=== PATIENT | female | born 1985 | race Two or more races ===

== ENCOUNTER 2016-08-24 19:15 | Inpatient (IN) | payer OTHER ==
[2016-08-24] MEDS ORDERED: DEXTROSE 5%-LACTATED RINGERS 1,000 ML IV SCH ×3 (20:00→22:15)
[2016-08-24 21:30] VITALS: BMI 25.4
[2016-08-24 21:41] LABS: BASOPHIL 0.3 % (0-2.0); EOSINOPHIL 0.4 % (0-4.5); MCH 30.8 pg (25.7-33.7); MCHC 33.1 g/dl (32.0-36.0); MEAN CELL VOLUME 92.9 fl (80-96); MEAN PLT VOLUME 8.9 fl (7.5-11.1); NEUTROPHILS 72.7 % (42.8-82.8); PLATELET COUNT 218 K/MM3 (134-434); RDW 13.9 % (11.6-15.6); WHITE BLOOD COUNT 9.6 K/mm3 (4.0-10.0)
[2016-08-24 21:55] LABS: INR 0.91 (0.82-1.09)
[2016-08-24 21:57] LABS: ACTIVATED PTT 31.4 SECONDS (26.9-34.4)
[2016-08-24 21:59] LABS: CALCIUM 8.5 mg/dL (8.5-10.1); COCKROFT - GAULT 129.9395; CREATININE 0.6 mg/dL (0.55-1.02)
[2016-08-24] MEDS ORDERED: DINOPROSTONE 10 MG VAGINAL SUPPOSITORY VG ONE (22:04)
[2016-08-24] MEDS ORDERED: PROMETHAZINE HCL 25 MG/1 ML VIAL IVPUSH ONE (22:04)
[2016-08-24] MEDS ORDERED: BUTORPHANOL TARTRATE 1 MG/ML VIAL IVPB ONE (22:04)
--- NOTE | 2016-08-24 22:04 | HP ---
Admitting History and Physical - Admission Chief Complaint: srom History of Present Illness: 30 y/o at 39.4 weeks comes with complaints of srom, denies ctx. She is a pt of [facility]. Blood typr o pos, rubella pos, hbsag neg, neg, hiv neg. Cxr neg History Source: Patient - Past Medical History [employer]: No: Alzheimer's, CVA, Dementia, Migraine, Multiple Sclerosis, Peripheral Neuropathy, Parkinson's, Seizure, Syncope, TIA, Vertigo, Other Cardiovascular: No: AFIB, Aneurysm, Aortic Insufficiency, Aortic Stenosis, CAD, CHF, Deep Vein Thrombosis, HTN, Hyperlipdemia, MT, Mitral Insufficiency, Mitral Stenosis, Murmur, Pulmonary Hypertension, Other Pulmonary: No: Asthma, Bronchitis, Cancer, COPD, O2 Dependent, Pneumonia, Previously Intubated, Pulmonary Embolus, Pulmonary Fibrosis, Sleep Apnea, Other Gastrointestinal: Yes: Gastritis. No: Ascites, Cancer, Constipation, Crohn's Disease, Diverticulitis, Diverticulosis, Esophageal Varices, GERD, GI Bleed, Hemorrhoids, Hiatal Hernia, Inflamatory Bowel Disease, Irritable Bowel Disease, Pancreatitis, Peptic Ulcer Disease, Ulcerative Colitis, Other Hepatobiliary: No: Cirrhosis, Cholelithiasis, Cholecystitis, Choledocholithiasis , Hepatitis A, Hepatitis B, Hepatitis C, Other Renal/: No: Renal Failure, Renal Inusuff, BPH, Cancer, Hematuria, Hemodialysis , Neurogenic Bladder, Renal Calculi, UTI, Other Reproductive: No: Ectopic , Endometriosis, Fibroids, PID, Polycystic Ovary Syndrome, Postmenopausal, Other ...: 2 ...Para: 1 Heme/Onc: No: Anemia, B12 Deficiency, Bleeding Disorder, Cancer, Current Chemotherapy, Current Radiation Therapy, Hemochromatosis, Hypercoaguable State, Myeloproliferative Synd, Sickle Cell Disease, Sickle Cell Trait, Thrombocytopenia, Other Infectious Disease: No: AIDS, C-Diff, Herpes Zoster, HIV, MRSA, STD's, Tuberculosis, VREF, Other Psych: No: Addictions, Anxiety, Bipolar, Depression, Panic, Psychosis, Schizophrenia, Other Musculoskeletal: No: Bursitis, Chronic low back pain, Hemiparesis, Hemiplegia, Osteoarthritis, Paraplegia, Other Rheumatology: No: Fibromyalgia, Gout, Lupus, Rheumatoid Arthritis, Sarcoidosis, Vasculitis, Other Endocrine: No: Pitt's Disease, Cora's Disease, Diabetes Insipidus, Diabetes Mellitus, Hyperparathyroidism, Hyperthyroidism, Hypothyroidism, Osteopenia, SIADH, Other Dermatology: No: Basal Cell, Cellulitis, Eczema, Melanoma, Psoriasis, Squamous Cell, Other - Past Surgical History Past Surgical History: No: None, AAA Repair, AICD, Amputation, Appendectomy, Arthrosocopy, AV Fistula/Graft, Bariatric Surgery, Breast Biopsy, Bypass, CABG, Carotid Endarterectomy, Cataract Removal, Cholecystectomy, Colectomy, Colonoscopy, Colostomy, Craniotomy, , Cystectomy, Hernia Repair, Hysterectomy, Ileal Conduit, Ileosotomy, Joint Replacement, Kidney Transplant, Laminectomy, Liver Transplant, Mastectomy, Nephrectomy, Oopherectomy, Orchiectomy, Permanent Pacemaker, Prostatectomy, Splenectomy, Stent, Thoracotomy , TURP, Tonsillectomy, Tubal Ligation, Upper Endoscopy, Valve Replacement, Vasectomy, Vein Stripping/Ligation - Advance Directives Advance Directives: No: Living Will, Health Care Proxy, DNR, Organ Donor, Tissue Donor, MOLST - Smoking History Smoking history: Never smoked Have you smoked in the past 12 months: No - Alcohol/Substance Use Hx Alcohol Use: No History of Substance Use: denies: None, Cocaine, Heroin, Marijuana, Prescription , Tranquilizers - Social History Usual Living Arrangement: No: Alone, With Spouse, With Parent, With Significant Other, With Child, Assisted Living, Custodial, Other History of Recent Travel: No Home Medications - Allergies Allergies/Adverse Reactions: Allergies Allergy/AdvReac Type Severity Reaction Status Date / Time No Known Allergies Allergy Verified 05/30/14 06:46 - Home Medications Home Medications: Ambulatory Orders Vitamins (Sjr) - 1 tab PO DAILY 05/30/14 Ibuprofen [Motrin -] 800 mg PO TID #90 tablet 05/31/14 Review of Systems - Review of Systems Constitutional: reports: No Symptoms Eyes: reports: No Symptoms HENT: reports: No Symptoms Neck: reports: No Symptoms Cardiovascular: reports: No Symptoms Respiratory: reports: No Symptoms Gastrointestinal: reports: No Symptoms Genitourinary: reports: No Symptoms Breasts: reports: No Symptoms Reported Musculoskeletal: reports: No Symptoms Integumentary: reports: No Symptoms Neurological: reports: No Symptoms Endocrine: reports: No Symptoms Hematology/Lymphatic: reports: No Symptoms Physical Examination Vital Signs: Vital Signs Temperature 98.1 F 08/24/16 21:45 Pulse Rate 70 08/24/16 21:45 Respiratory Rate 20 08/24/16 21:45 Blood Pressure 123/74 08/24/16 21:45 O2 Sat by Pulse Oximetry (%) Constitutional: Yes: Well Nourished Eyes: Yes: WNL HENT: Yes: WNL Neck: Yes: WNL Cardiovascular: Yes: WNL Respiratory: Yes: WNL Gastrointestinal: Yes: WNL Breast(s): Yes: WNL Musculoskeletal: Yes: WNL Extremities: Yes: WNL Neurological: Yes: WNL ...Motor Strength: WNL Psychiatric: Yes: WNL (exam FT long, post) Labs: CBC, BMP 08/24/16 21:15 08/24/16 21:15 Assessment/Plan as above cervidil admit labs pain meds prn
--- NOTE | 2016-08-24 22:11 | PN ---
Progress Note (short form) - Note Progress Note: cervidil at 1010pm post fornix cat 1 tracing 150 react
[2016-08-25] MEDS ORDERED: BENZOCAINE 20% 57 GM BOTTLE TP PRN (01:34)
[2016-08-25] MEDS ORDERED: BENZOCAINE 28 GM HEMORRHOIDAL OINTMENT TP PRN (01:34)
[2016-08-25] MEDS ORDERED: METHYLERGONOVINE MALEATE 0.2 MG/1 ML AMP IM PRN (01:34)
[2016-08-25] MEDS ORDERED: BISACODYL 10 MG SUPP.RECT RC PRN (01:34)
[2016-08-25] MEDS ORDERED: WITCH HAZEL 50% (TUCKS) 40 PAD/JAR PAD TP PRN (01:34)
--- NOTE | 2016-08-25 01:36 | PN ---
Delivery - Delivery Episiotomy/Laceration: None EBL (cc): 300 Delivery, Single - [place] Feeding Plan Initial Plan: Elected not to breastfeed exclusively throughout hospitalization
[2016-08-25] MEDS ORDERED: OXYTOCIN 20 UNITS in 0.9% NS 1,000 ML IV SCH (01:45)
[2016-08-25] MEDS: IBUPROFEN 600 MG TABLET (FP) PO PRN ×2 (07:35→22:20)
[2016-08-25] MEDS: FERROUS SO4 325 MG TABLET (FP) PO SCH ×3 (07:35→17:26)
[2016-08-25] MEDS: ACETAMINOPHEN 325 MG TABLET (FP) PO PRN ×2 (07:36→22:19)
[2016-08-25] MEDS: PRENATAL VITAMINS W/ FOLIC ACID TABLET (FP) PO SCH (09:34)
[2016-08-25] MEDS ORDERED: INFLUENZA VACCINE 60 MCG/0.5 ML (P/F DISP.SYRIN 16-17) IM ONE (10:00)
[2016-08-25] MEDS ORDERED: CEFAZOLIN (PRE-DOCKED) 50 ML IVPB ONE (10:14)
--- NOTE | 2016-08-26 07:52 | PN ---
Progress Note (short form) - Note Progress Note: ppd 1, doing well, no excess vaginal bleeding , baby transferred to [facility] wants yodit discharged to o to [facility] CBC, BMP 08/24/16 21:15 08/24/16 21:15 Last Vital Signs Temp Pulse Resp BP Pulse Ox 97.8 F 70 20 125/60 100 08/25/16 22:00 08/25/16 22:00 08/25/16 22:00 08/25/16 22:00 08/25/16 02:30 abdomen soft, uterus firm, non tender lochia mild ,no calf tenderness plan d/c home, follow up h care 4 weeks, instruction given
[2016-08-26] MEDS: IBUPROFEN 600 MG TABLET (FP) PO PRN (08:41)
[2016-08-26] MEDS: FERROUS SO4 325 MG TABLET (FP) PO SCH ×2 (08:41→10:00)
[2016-08-26 08:42] LABS: BASOPHIL 0.2 % (0-2.0); EOSINOPHIL 0.8 % (0-4.5); MCH 31.2 pg (25.7-33.7); MCHC 33.6 g/dl (32.0-36.0); MEAN CELL VOLUME 92.8 fl (80-96); MEAN PLT VOLUME 8.3 fl (7.5-11.1); NEUTROPHILS 81.4 % (42.8-82.8); PLATELET COUNT 178 K/MM3 (134-434); WHITE BLOOD COUNT 12.7 K/mm3 (4.0-10.0)
[2016-08-26] MEDS: ACETAMINOPHEN 325 MG TABLET (FP) PO PRN (08:42)
[2016-08-26 09:47] VITALS: BP 119/79; PULSE 90; TEMP 98.2
[2016-08-26] MEDS: PRENATAL VITAMINS W/ FOLIC ACID TABLET (FP) PO SCH (10:00)
[2016-08-26] MEDS ORDERED: SENNOSIDES/DOCUSATE COMBO (SENNA PLUS) TABLET (UD) PO PRN (22:00)
== END 2016-08-26 13:00 | disposition home or self-care (01) | DRG 560 ==
LOC: JDEL 19:15 → JLDR 20:00 → J3W 08-25 03:30
PROVIDERS: ADMIT Obstetrics & Gynecology; ATTEND Obstetrics & Gynecology
PROC: 3E0P7GC Introduction of Other Therapeutic Substance into Female Reproductive, Via Natural or Artificial Opening (ICD-10-PCS; 2016-08-24)
PROC: 10E0XZZ Delivery of Products of Conception, External Approach (ICD-10-PCS; principal; 2016-08-25)
DX: O80 Encounter for full-term uncomplicated delivery (principal); Z3A.39 39 weeks gestation of pregnancy; Z37.0 Single live birth
CPT/HCPCS: 36415; 59409; 80048; 85025; 85610; 85730; 86593; 86850; 86900; 86901; 90686; G0008